=== PATIENT | male | born 1965 | race Caucasian/White ===

== ENCOUNTER 2016-08-14 10:25 | Outpatient (CLI) | payer OTHER ==
--- NOTE | 2016-08-14 13:48 | Diagnostic Imaging Report ---
[facility] [address] [facility].[address] [id number] Report Submission Date: Aug 14, 2016 12:18:36 PM FOREIGN EXCHANGE CLERK Patient Study Name: VANDANA LASSITER Date: Aug 14, 2016 10:50:52 AM FOREIGN EXCHANGE CLERK Modality Type: CR Gender: M Description: UPPER EXTREMITY : 65 Institution: [facility] Physician: DEREJE PADRON Right second finger - three views Clinical history: Pain for 6-8 months. Findings: Examination right second finger in palmar, lateral and oblique views demonstrates mild degenerative changes with minimal spur formation of the metacarpal phalangeal joint and in the distal interphalangeal joint. There is no evident fracture and no lytic or blastic lesion. Small ossicle is seen palmar to the second middle phalanx. Impression: 1. Mild degenerative changes. 2. No fracture. Electronically signed on Aug 14, 2016 12:18:36 PM FOREIGN EXCHANGE CLERK by: Ab WAGONER
== END 2016-08-14 10:26 ==
LOC: RAD 10:25
PROVIDERS: ATTEND Family Medicine
DX: M79.641 Pain in right hand (principal)
CPT/HCPCS: 73140

== ENCOUNTER 2018-12-16 19:38 | Emergency (ER) | payer OTHER ==
[2018-12-16] MEDS ORDERED: HYDROcodone /APAP 10/325 1 EACH TABLET PO ONE (19:58)
--- NOTE | 2019-01-03 11:26 | Diagnostic Imaging Report ---
RONNI HOLLIDAY [facility] [address] [facility] [address], [place]. [address] Report Submission Date: Dec 16, 2018 8:32:10 PM CDT Patient Study Name: VANDANA LASSITER Date: Dec 16, 2018 7:57:48 PM CDT Modality Type: DX Gender: M Description: FOOT 3 VIEWS OR MORE : 65 Institution: [facility] Physician: RONNI HOLLIDAY FOOT RIGHT HISTORY: RIGHT FOOT PAIN. FINDINGS: AP, lateral and oblique views of the right foot demonstrate bones and joints to be normal without evidence of fracture or other acute abnormality identified. IMPRESSION: No acute process seen. Electronically signed on Dec 16, 2018 8:32:10 PM CDT by: John WAGONER
== END 2018-12-16 20:50 | disposition home or self-care (01) ==
LOC: ED 19:38
DX: M79.671 Pain in right foot (principal)
CPT/HCPCS: 29540; 73630; 99283